=== PATIENT | female | born 1985 | race African-American/Black ===

== ENCOUNTER 2021-08-16 14:35 | Outpatient (CLI) | payer MEDICAID | END 2021-08-16 14:36 | disposition critical access hospital (66) | LOC: EMS 14:35 | DX: T63.441A Toxic effect of venom of bees, accidental (unintentional), initial encounter (principal); R42 Dizziness and giddiness; R07.89 Other chest pain; Y99.0 Civilian activity done for income or pay | CPT/HCPCS: A0425; A0429; A0999 ==

== ENCOUNTER 2021-08-16 14:55 | Emergency (ER) | payer MEDICAID ==
[2021-08-16] MEDS ORDERED: DEXAMETHASONE 10 MG/ML VIAL IVP STA (15:08)
[2021-08-16 15:38] VITALS: BP 131/69
--- NOTE | 2021-08-16 15:49 | ED Physician Documentation ---
History of Present Illness - Stated complaint Stated Complaint: BEE STING - Chief complaint Chief Complaint: Allergic Rx - History obtained from History obtained from: Patient - History of Present Illness Timing: Today - Additonal information Additional information: 36-year-old female who has had anaphylaxis from bee sting previously was at work today when she was stung in the neck both on the side of the neck and the back of the neck. She had immediate swelling to the area, and then she developed some shortness of breath. She stopped her work, went directly to the convenient store, purchased purchased some Benadryl and took it. She felt that she could hold her own if she was breathing very shallow breaths. Her coworkers came to find her and took her to the urgent care clinic where she was administered epinephrine and the ambulance was summoned to take her to the hospital. Review of Systems Constitutional: denies: Fever Eyes: denies: Decreased vision Ears: denies: Ear pain Nose: denies: Congestion Throat: denies: Sore throat Cardiac: denies: Chest pain / pressure, Palpitations Respiratory: reports: Dyspnea. denies: Cough, Hemoptysis, Wheezing GI: denies: Abdominal Pain, Nausea, Vomiting : denies: Dysuria, Frequency PD PAST MEDICAL HISTORY - Past Surgical History Past Surgical History: No - Present Medications Home Medications: Ambulatory Orders Medication Instructions Recorded Confirmed LORazepam [Lorazepam] 0.5 mg PO BID PRN #14 tablet 08/15/19 EPINEPHrine [Epinephrine] 0.3 mg IJ ONCE PRN #2 syr 08/16/21 - Allergies Allergies/Adverse Reactions: Allergies Allergy/AdvReac Type Severity Reaction Status Date / Time hydrocodone Allergy Anaphylaxis Verified 08/16/21 15:05 - Social History Does the pt smoke?: No Smoking Status: Never smoker Does the pt drink ETOH?: No Does the pt have substance abuse?: No - Immunizations Immunizations are current?: No Immunizations: TDAP >10years/unknown - POLST Patient has POLST: No PD ED PE NORMAL - Vitals Vital signs reviewed: Yes (normal ) - General General: Alert and oriented X 3, No acute distress, Well developed/nourished - HEENT HEENT: Atraumatic, PERRL, EOMI - Neck Neck: Supple, no meningeal sign, No bony TTP, Other (There is swelling apprciated to the left lateral neck and the posterior neck. ) - Cardiac Cardiac: RRR, No murmur - Respiratory Respiratory: No respiratory distress, Clear bilaterally - Abdomen Abdomen: Normal bowel sounds, Soft, Non tender, Non distended, No organomegaly - Back Back: No CVA TTP, No spinal TTP - Derm Derm: Normal color, Warm and dry, No rash - Extremities Extremities: No deformity, No edema - Neuro Neuro: Alert and oriented X 3, sod stripper 2-12 intact, No motor deficit, No sensory deficit, Normal speech Eye Opening: Spontaneous Motor: Obeys Commands Verbal: Oriented GCS Score: 15 - Psych Psych: Normal mood, Normal affect Results - Vitals Vitals: Vital Signs - 24 hr 08/16/21 08/16/21 15:01 15:37 Temperature 36.8 C Heart Rate 65 55 L Respiratory 15 16 Rate Blood Pressure 128/66 131/69 H O2 Saturation 100 100 Oxygen O2 Source Room air PD MEDICAL DECISION MAKING - ED course Complexity details: considered differential, d/w patient ED course: 36-year-old female with a history of bee sting anaphylaxis has been stung. She has been treated prior to the emergency department. She has been administered both epinephrine and Benadryl. Here in the emergency department she is administered dexamethasone. I have asked patient to continue Benadryl 25 mg every 6 hours for the next 2 days and we have refilled an epinephrine pen for the patient. Departure - Departure Disposition: 01 Home, Self Care Clinical Impression: Bee sting-induced anaphylaxis Qualifiers: Encounter type: initial encounter Injury intent: accidental or unintentional Qualified Code(s): T63.441A - Toxic effect of venom of bees, accidental (unintentional), initial encounter Condition: Stable Instructions: ED Bite Sting Insect Gen Allergic React Follow-Up: Mariano Noonan MD [Provider Admit Priv/Credential] - Prescriptions: EPINEPHrine [Epinephrine] 0.3 mg IJ ONCE PRN #2 syr PRN Reason: bee sting Comments: Amaury, today it looks like he was stung by a bee and had anaphylaxis associated with that and we have given you some dexamethasone here in the emergency department which should help over the next 2 days. In addition my recommendation is to take Benadryl 25 mg every 6 hours for the next 2 days. I have e-scribed an EpiPen for you and this will be available at the [facility].
== END 2021-08-16 16:13 | disposition home or self-care (01) ==
LOC: EDUNIT# → ED 14:55
DX: T63.441A Toxic effect of venom of bees, accidental (unintentional), initial encounter (principal)
CPT/HCPCS: 96374; 99282

== ENCOUNTER 2021-09-22 09:15 | Outpatient (CLI) | payer OTHER, MEDICAID ==
--- NOTE | 2021-09-22 14:17 | XRAY Report ---
PROCEDURE: Knee 3 View LT INDICATIONS: LEFT KNEE PAIN TECHNIQUE: 3 views of the left knee(s) were acquired. COMPARISON: None. FINDINGS: Bones: No fractures or dislocations. No suspicious bony lesions. Mild osteoarthritic degenerative c hanges noted in all 3 compartments of the left knee. Soft tissues: No joint effusion. No suspicious soft tissue calcifications. IMPRESSION: Mild left knee tricompartmental osteoarthritis. Reviewed by: Rose Perales MD, PhD on 09/22/2021 2:16 PM PDT Approved by: Rose Perales MD, PhD on 09/22/2021 2:16 PM PDT Station ID: [id number]
== END 2021-09-22 23:59 | disposition home or self-care (01) ==
LOC: DI.WOS 09:15
PROVIDERS: ATTEND Physician Assistant
DX: M17.12 Unilateral primary osteoarthritis, left knee (principal)

== ENCOUNTER 2022-10-31 21:28 | Emergency (ER) | payer MEDICAID ==
--- OUTSIDE RECORDS SUMMARY | 2022-10-31 21:48 | EXTERNAL MEDICAL SUMMARY RPT | Continuity of Care Document ---
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 (A50-A64) [facility] 2022-10-25 14:55 Encounter for screening for oth er viral diseases [facility] Results/Labs test date author facility value unit interpretation Result panel 1 (unknown) (no date) (unknown) (unknown) (no value) (units unknown) (unknown) (unknown) (no date) (unknown) (unknown) 10/25/22 (units unknown) (unknown) (unknown) (no date) (unknown) (unknown) 14:49 (units unknown) (unknown) (unknown) (no date) (unknown) (unknown) [id number] (units unknown) (unknown) (unknown) (no date) (unknown) (unknown) Accompanied by: Self / Same As Patient (units unknown) (unknown) (unknown) (no date) (unknown) (unknown) Age/Sex: 37 / F Date of Service: (units unknown) (unknown) (unknown) (no date) (unknown) (unknown) Allergies (units unknown) (unknown) (unknown) (no date) (unknown) (unknown) [place] [address] (units unknown) (unknown) (unknown) (no date) (unknown) (unknown) Anaphylaxis (units unknown) (unknown) (unknown) (no date) (unknown) (unknown) Assessment + Plan (units unknown) (unknown) (unknown) (no date) (unknown) (unknown) Attending Dr: Stephanie Nance D.O. (units unknown) (unknown) (unknown) (no date) (unknown) (unknown) BMI 51.1 (units unknown) (unknown) (unknown) (no date) (unknown) (unknown) BP 122/70 (units unknown) (unknown) (unknown) (no date) (unknown) (unknown) Blood Pressure Locat ion Lt brachial (units unknown) (unknown) (unknown) (no date) (unknown) (unknown) : 1985 Acct:[id number] (units unknown) (unknown) (unknown) (no date) (unknown) (unknown) Date of Last Menstru al Period: 10/06/22 (units unknown) (unknown) (unknown) (no date) (unknown) (unknown) Dept at . (units unknown) (unknown) (unknown) (no date) (unknown) (unknown) Documented By: Stephanie Nance D.O. 10/25/22 1444 (units unknown) (unknown) (unknown) (no date) (unknown) (unknown) Draft (units unknown) (unknown) (unknown) (no date) (unknown) (unknown) Family Practice Offi ce Visit (units unknown) (unknown) (unknown) (no date) (unknown) (unknown) [facility] (units unknown) (unknown) (unknown) (no date) (unknown) (unknown) HIV 1 + 2 Ab/Ag 4th Gen Combo Today A64 - Unspecified sexually transmitted (units unknown) (unknown) (unknown) (no date) (unknown) (unknown) Health Management reviewed with patient: Yes (units unknown) (unknown) (unknown) (no date) (unknown) (unknown) Health Management (units unknown) (unknown) (unknown) (no date) (unknown) (unknown) Height 5 ft 5 in (units unknown) (unknown) (unknown) (no date) (unknown) (unknown) Hep C Virus Ab w/Ref mera Quant Today A64 - Unspecified sexually transmitted (units unknown) (unknown) (unknown) (no date) (unknown) (unknown) Intake Note: (units unknown) (unknown) (unknown) (no date) (unknown) (unknown) Intake performed by: Francisca Patel (units unknown) (unknown) (unknown) (no date) (unknown) (unknown) Intake (units unknown) (unknown) (unknown) (no date) (unknown) (unknown) Intake- Clincial Staff (units unknown) (unknown) (unknown) (no date) (unknown) (unknown) Is last menstrual period known: Yes (units unknown) (unknown) (unknown) (no date) (unknown) (unknown) Last Menstural Cycle + Details (units unknown) (unknown) (unknown) (no date) (unknown) (unknown) Loc: [facility] (units unknown) (unknown) (unknown) (no date) (unknown) (unknown) MM screening mammo B I Today Z12.31 - Encounter for screening mammogram for (units unknown) (unknown) (unknown) (no date) (unknown) (unknown) Medications 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 to establish care and requesting mammogram due (units unknown) (unknown) (unknown) (no date) (unknown) (unknown) No Known Home Medications 10/25/22 [History Confirmed 10/25/22] (units unknown) (unknown) (unknown) (no date) (unknown) (unknown) Orders (units unknown) (unknown) (unknown) (no date) (unknown) (unknown) Orders: (units unknown) (unknown) (unknown) (no date) (unknown) (unknown) Oxygen Delivery Meth od room air (units unknown) (unknown) (unknown) (no date) (unknown) (unknown) PFSH (units unknown) (unknown) (unknown) (no date) (unknown) (unknown) Patient: Amie Teresa arthur MR#: [id number] (units unknown) (unknown) (unknown) (no date) (unknown) (unknown) Position Sitting (units unknown) (unknown) (unknown) (no date) (unknown) (unknown) Pulse 83 (units unknown) (unknown) (unknown) (no date) (unknown) (unknown) Pulse Oximetry (%) 97 (units unknown) (unknown) (unknown) (no date) (unknown) (unknown) Pulse Source Monitor (units unknown) (unknown) (unknown) (no date) (unknown) (unknown) Reason For Visit (units unknown) (unknown) (unknown) (no date) (unknown) (unknown) Signed By: (units unknown) (unknown) (unknown) (no date) (unknown) (unknown) Smokeless tobacco us er: other (nicotine vape starting 2018 ) (units unknown) (unknown) (unknown) (no date) (unknown) (unknown) Smoking Status: Curr ent every day smoker (nicotine vape ) (units unknown) (unknown) (unknown) (no date) (unknown) (unknown) Temp 97.1 F L (units unknown) (unknown) (unknown) (no date) (unknown) (unknown) Temp Source Temporal Artery Scan (units unknown) (unknown) (unknown) (no date) (unknown) (unknown) This note may have b een all or partially generated using voice recognition (units unknown) (unknown) (unknown) (no date) (unknown) (unknown) Tobacco + Substance Use (units unknown) (unknown) (unknown) (no date) (unknown) (unknown) Tobacco Status (units unknown) (unknown) (unknown) (no date) (unknown) (unknown) Tobacco: How many ye ars used: 9 (units unknown) (unknown) (unknown) (no date) (unknown) (unknown) 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 If th ere are any questions, please contact the Medical Records (units unknown) (unknown) (unknown) (no date) (unknown) (unknown) hydrocodone Allergy (Severe, Verified 10/25/22 14:48) (units unknown) (unknown) (unknown) (no date) (unknown) (unknown) malignant neoplasm o f breast (units unknown) (unknown) (unknown) (no date) (unknown) (unknown) may occur. Occasiona l wrong-word or 'sound-alike' substitutions may have (units unknown) (unknown) (unknown) (no date) (unknown) (unknown) occurred due to the inherent limitations of voice recognition software. Please (units unknown) (unknown) (unknown) (no date) (unknown) (unknown) read the note maria lly and recognize, using context, where these substitutions (units unknown) (unknown) (unknown) (no date) (unknown) (unknown) software. Although every effort is made to edit content, medical billing representative errors (units unknown) (unknown) (unknown) (no date) (unknown) (unknown) substance use type: marijuana (3 grams per day ) (units unknown) (unknown) (unknown) (no date) (unknown) (unknown) to breast cancer screening (units unknown) (unknown) Result panel 2 (unknown) (no date) (unknown) (unknown) (no value) (units unknown) (unknown) (unknown) (no date) (unknown) (unknown) +++FHx DM, HLD (units unknown) (unknown) (unknown) (no date) (unknown) (unknown) 10/25/22 (units unknown) (unknown) (unknown) (no date) (unknown) (unknown) 14:49 (units unknown) (unknown) (unknown) (no date) (unknown) (unknown) 17-OH Progesterone Today E28.2 - Polycystic ovarian syndrome, E34.9 - Endocrine (units unknown) (unknown) (unknown) (no date) (unknown) (unknown) [id number] (units unknown) (unknown) (unknown) (no date) (unknown) (unknown) Accompanied by: Self / Same As Patient (units unknown) (unknown) (unknown) (no date) (unknown) (unknown) Add'l Complaint: (units unknown) (unknown) (unknown) (no date) (unknown) (unknown) Age/Sex: 37 / F Date of Service: (units unknown) (unknown) (unknown) (no date) (unknown) (unknown) Allergies (units unknown) (unknown) (unknown) (no date) (unknown) (unknown) [place] [address] (units unknown) (unknown) (unknown) (no date) (unknown) (unknown) Anaphylaxis (units unknown) (unknown) (unknown) (no date) (unknown) (unknown) Assessment + Plan (units unknown) (unknown) (unknown) (no date) (unknown) (unknown) Attending Dr: Stephanie Nance D.O. (units unknown) (unknown) (unknown) (no date) (unknown) (unknown) BMI 51.1 (units unknown) (unknown) (unknown) (no date) (unknown) (unknown) BP 122/70 (units unknown) (unknown) (unknown) (no date) (unknown) (unknown) Blood Pressure Locat ion Lt brachial (units unknown) (unknown) (unknown) (no date) (unknown) (unknown) Chief Complaint (units unknown) (unknown) (unknown) (no date) (unknown) (unknown) Chief Complaint: establish (units unknown) (unknown) (unknown) (no date) (unknown) (unknown) Comprehensive Metabo lic Panel Today E28.2 - Polycystic ovarian syndrome, E34.9 (units unknown) (unknown) (unknown) (no date) (unknown) (unknown) : 1985 Acct:[id number] (units unknown) (unknown) (unknown) (no date) (unknown) (unknown) Date of Last Menstru al Period: 10/06/22 (units unknown) (unknown) (unknown) (no date) (unknown) (unknown) Dept at . (units unknown) (unknown) (unknown) (no date) (unknown) (unknown) Details: (units unknown) (unknown) (unknown) (no date) (unknown) (unknown) Dihydrotestosterone Today E28.2 - Polycystic ovarian syndrome, E34.9 - Endocrine (units unknown) (unknown) (unknown) (no date) (unknown) (unknown) Documented By: Stephanie Nance D.O. 10/25/22 1444 (units unknown) (unknown) (unknown) (no date) (unknown) (unknown) Draft (units unknown) (unknown) (unknown) (no date) (unknown) (unknown) Encounter for screen ing for lipoid disorders, Z13.228 - Encounter for screening (units unknown) (unknown) (unknown) (no date) (unknown) (unknown) Encounter for screen ing for other metabolic disorders (units unknown) (unknown) (unknown) (no date) (unknown) (unknown) Endocrine disorder, unspecified, E55.9 - Vitamin D deficiency, unspecified, (units unknown) (unknown) (unknown) (no date) (unknown) (unknown) FHx breast cancer, m om dx in her 30s. Sister recently dx benign nodule. (units unknown) (unknown) (unknown) (no date) (unknown) (unknown) Family Practice Offi ce Visit (units unknown) (unknown) (unknown) (no date) (unknown) (unknown) [facility] (units unknown) (unknown) (unknown) (no date) (unknown) (unknown) Great grandfather (Gma's dad) passed from pancreatic cancer (units unknown) (unknown) (unknown) (no date) (unknown) (unknown) HIV 1 + 2 Ab/Ag 4th Gen Combo Today A64 - Unspecified sexually transmitted (units unknown) (unknown) (unknown) (no date) (unknown) (unknown) HPI (units unknown) (unknown) (unknown) (no date) (unknown) (unknown) Health Management reviewed with patient: Yes (units unknown) (unknown) (unknown) (no date) (unknown) (unknown) Health Management (units unknown) (unknown) (unknown) (no date) (unknown) (unknown) Height 5 ft 5 in (units unknown) (unknown) (unknown) (no date) (unknown) (unknown) Hemoglobin A1C% w Es t Avg Glu Today E28.2 - Polycystic ovarian syndrome, E34.9 (units unknown) (unknown) (unknown) (no date) (unknown) (unknown) Hep C Virus Ab w/Ref mera Quant Today A64 - Unspecified sexually transmitted (units unknown) (unknown) (unknown) (no date) (unknown) (unknown) Intake Note: (units unknown) (unknown) (unknown) (no date) (unknown) (unknown) Intake performed by: Francisca Patel (units unknown) (unknown) (unknown) (no date) (unknown) (unknown) Intake (units unknown) (unknown) (unknown) (no date) (unknown) (unknown) Intake- Clincial Staff (units unknown) (unknown) (unknown) (no date) (unknown) (unknown) Is last menstrual period known: Yes (units unknown) (unknown) (unknown) (no date) (unknown) (unknown) Last Menstural Cycle + Details (units unknown) (unknown) (unknown) (no date) (unknown) (unknown) Lipid Panel Today E2 8.2 - Polycystic ovarian syndrome, E34.9 - Endocrine (units unknown) (unknown) (unknown) (no date) (unknown) (unknown) Loc: [facility] (units unknown) (unknown) (unknown) (no date) (unknown) (unknown) MM screening mammo B I Today Z12.31 - Encounter for screening mammogram for (units unknown) (unknown) (unknown) (no date) (unknown) (unknown) Medications 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 to establish care and requesting mammogram due (units unknown) (unknown) (unknown) (no date) (unknown) (unknown) Orders (units unknown) (unknown) (unknown) (no date) (unknown) (unknown) Orders: (units unknown) (unknown) (unknown) (no date) (unknown) (unknown) Oxygen Delivery Meth od room air (units unknown) (unknown) (unknown) (no date) (unknown) (unknown) PFSH (units unknown) (unknown) (unknown) (no date) (unknown) (unknown) Patient: Amie Teresa MR#: [id number] (units unknown) (unknown) (unknown) (no date) (unknown) (unknown) Position Sitting (units unknown) (unknown) (unknown) (no date) (unknown) (unknown) Prolactin Today E28. 2 - Polycystic ovarian syndrome, E34.9 - Endocrine disorder, (units unknown) (unknown) (unknown) (no date) (unknown) (unknown) Pulse 83 (units unknown) (unknown) (unknown) (no date) (unknown) (unknown) Pulse Oximetry (%) 97 (units unknown) (unknown) (unknown) (no date) (unknown) (unknown) Pulse Source Monitor (units unknown) (unknown) (unknown) (no date) (unknown) (unknown) R53.83 - Other fatig ue, R73.9 - Hyperglycemia, unspecified, Z13.1 - Encounter (units unknown) (unknown) (unknown) (no date) (unknown) (unknown) R73.9 - Hyperglycemi a, unspecified, Z11.59 - Encounter for screening for other (units unknown) (unknown) (unknown) (no date) (unknown) (unknown) R73.9 - Hyperglycemi a, unspecified, Z13.1 - Encounter for screening for diabetes (units unknown) (unknown) (unknown) (no date) (unknown) (unknown) Reason For Visit (units unknown) (unknown) (unknown) (no date) (unknown) (unknown) Signed By: (units unknown) (unknown) (unknown) (no date) (unknown) (unknown) Smokeless tobacco us er: other (nicotine vape starting 2017 ) (units unknown) (unknown) (unknown) (no date) (unknown) (unknown) Smoking Status: Curr ent every day smoker (nicotine vape ) (units unknown) (unknown) (unknown) (no date) (unknown) (unknown) TSH w/ Reflex to FT4 Today E28.2 - Polycystic ovarian syndrome, E34.9 (units unknown) (unknown) (unknown) (no date) (unknown) (unknown) Temp 97.1 F L (units unknown) (unknown) (unknown) (no date) (unknown) (unknown) Temp Source Temporal Artery Scan (units unknown) (unknown) (unknown) (no date) (unknown) (unknown) Testosterone Free an d Total Today E28.2 - Polycystic ovarian syndrome, E34.9 (units unknown) (unknown) (unknown) (no date) (unknown) (unknown) This note may have b een all or partially generated using voice recognition (units unknown) (unknown) (unknown) (no date) (unknown) (unknown) Tobacco + Substance Use (units unknown) (unknown) (unknown) (no date) (unknown) (unknown) Tobacco Status (units unknown) (unknown) (unknown) (no date) (unknown) (unknown) Tobacco: How many ye ars used: 9 (units unknown) (unknown) (unknown) (no date) (unknown) (unknown) 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 (units unknown) (unknown) (unknown) (no date) (unknown) (unknown) Vitals (units unknown) (unknown) (unknown) (no date) (unknown) (unknown) Vitamin D 25 Hydroxy (D3) Today E28.2 - Polycystic ovarian syndrome, E34.9 (units unknown) (unknown) (unknown) (no date) (unknown) (unknown) Weight 307 lb 8 oz (units unknown) (unknown) (unknown) (no date) (unknown) (unknown) Will schedule pap (units unknown) (unknown) (unknown) (no date) (unknown) (unknown) Z13.228 - Encounter for screening for other metabolic disorders (units unknown) (unknown) (unknown) (no date) (unknown) (unknown) alcohol intake: curr ent (1-2 drinks every 3 months ) (units unknown) (unknown) (unknown) (no date) (unknown) (unknown) biotin PO 10/25/22 [History Confirmed 10/25/22] (units unknown) (unknown) (unknown) (no date) (unknown) (unknown) cholecalciferol (vitamin D3) PO 10/25/22 [History Confirmed 10/25/22] (units unknown) (unknown) (unknown) (no date) (unknown) (unknown) diabetes mellitus, Z13.220 - Encounter for screening for lipoid disorders, (units unknown) (unknown) (unknown) (no date) (unknown) (unknown) disease, E28.2 - Polycystic ovarian syndrome, E34.9 - Endocrine disorder, (units unknown) (unknown) (unknown) (no date) (unknown) (unknown) disorder, unspecifie d, E55.9 - Vitamin D deficiency, unspecified, R53.83 - Other (units unknown) (unknown) (unknown) (no date) (unknown) (unknown) disorders (units unknown) (unknown) (unknown) (no date) (unknown) (unknown) does self checks aft er period monthly (units unknown) (unknown) (unknown) (no date) (unknown) (unknown) due for pap (units unknown) (unknown) (unknown) (no date) (unknown) (unknown) family history (units unknown) (unknown) (unknown) (no date) (unknown) (unknown) fatigue, R73.9 - Hyperglycemia, unspecified, Z13.1 - Encounter for screening for (units unknown) (unknown) (unknown) (no date) (unknown) (unknown) for other metabolic disorders (units unknown) (unknown) (unknown) (no date) (unknown) (unknown) for screening for diabetes mellitus, Z13.220 - Encounter for screening for (units unknown) (unknown) (unknown) (no date) (unknown) (unknown) has been healthy (units unknown) (unknown) (unknown) (no date) (unknown) (unknown) has never had a mammogram before (units unknown) (unknown) (unknown) (no date) (unknown) (unknown) have occurred. If th ere are any questions, please contact the Medical Records (units unknown) (unknown) (unknown) (no date) (unknown) (unknown) hydrocodone Allergy (Severe, Verified 10/25/22 14:48) (units unknown) (unknown) (unknown) (no date) (unknown) (unknown) knee surgery (arthroscopy?) after an injury age 13, left leg. (units unknown) (unknown) (unknown) (no date) (unknown) (unknown) lipoid disorders, Z13.228 - Encounter for screening for other metabolic (units unknown) (unknown) (unknown) (no date) (unknown) (unknown) malignant neoplasm o f breast (units unknown) (unknown) (unknown) (no date) (unknown) (unknown) may occur. Occasiona l wrong-word or 'sound-alike' substitutions may have (units unknown) (unknown) (unknown) (no date) (unknown) (unknown) mellitus, Z13.220 - Encounter for screening for lipoid disorders, Z13.228 (units unknown) (unknown) (unknown) (no date) (unknown) (unknown) no known hx colon cancer (units unknown) (unknown) (unknown) (no date) (unknown) (unknown) occurred due to the inherent limitations of voice recognition software. Please (units unknown) (unknown) (unknown) (no date) (unknown) (unknown) one abnormal, was to ld might have reactivity (units unknown) (unknown) (unknown) (no date) (unknown) (unknown) read the note carefu lly and recognize, using context, where these substitutions (units unknown) (unknown) (unknown) (no date) (unknown) (unknown) software. Although every effort is made to edit content, medical billing representative errors (units unknown) (unknown) (unknown) (no date) (unknown) (unknown) substance use type: marijuana (3 grams per day ) (units unknown) (unknown) (unknown) (no date) (unknown) (unknown) to breast cancer screening (units unknown) (unknown) (unknown) (no date) (unknown) (unknown) tonsils and adenoids out after several rounds of strep as a kid (units unknown) (unknown) (unknown) (no date) (unknown) (unknown) unspecified, E55.9 - Vitamin D deficiency, unspecified, R53.83 - Other fatigue, (units unknown) (unknown) (unknown) (no date) (unknown) (unknown) viral diseases, Z13. 1 - Encounter for screening for diabetes mellitus, Z13.220 (units unknown) (unknown) (unknown) (no date) (unknown) (unknown) vitamin A-vitamin C-vitamin E PO 10/25/22 [History Confirmed 10/25/22] (units unknown) (unknown) (unknown) (no date) (unknown) (unknown) vitamin E acetate PO 10/25/22 [History Confirmed 10/25/22] (units unknown) (unknown) Result panel 3 (unknown) (no date) (unknown) (unknown) (no value) (units unknown) (unknown) (unknown) (no date) (unknown) (unknown) +++FHx DM, HLD (units unknown) (unknown) (unknown) (no date) (unknown) (unknown) 10/25/22 (units unknown) (unknown) (unknown) (no date) (unknown) (unknown) 14:49 (units unknown) (unknown) (unknown) (no date) (unknown) (unknown) 17-OH Progesterone Today E28.2 - Polycystic ovarian syndrome, E34.9 - Endocrine (units unknown) (unknown) (unknown) (no date) (unknown) (unknown) [id number] (units unknown) (unknown) (unknown) (no date) (unknown) (unknown) Accompanied by: Self / Same As Patient (units unknown) (unknown) (unknown) (no date) (unknown) (unknown) Add'l Complaint: (units unknown) (unknown) (unknown) (no date) (unknown) (unknown) Age/Sex: 37 / F Date of Service: (units unknown) (unknown) (unknown) (no date) (unknown) (unknown) Allergies (units unknown) (unknown) (unknown) (no date) (unknown) (unknown) [place] [address] (units unknown) (unknown) (unknown) (no date) (unknown) (unknown) Anaphylaxis (units unknown) (unknown) (unknown) (no date) (unknown) (unknown) Assessment + Plan (units unknown) (unknown) (unknown) (no date) (unknown) (unknown) Attending Dr: Stephanie Nance D.O. (units unknown) (unknown) (unknown) (no date) (unknown) (unknown) BMI 51.1 (units unknown) (unknown) (unknown) (no date) (unknown) (unknown) BP 122/70 (units unknown) (unknown) (unknown) (no date) (unknown) (unknown) Blood Pressure Locat ion Lt brachial (units unknown) (unknown) (unknown) (no date) (unknown) (unknown) Chief Complaint (units unknown) (unknown) (unknown) (no date) (unknown) (unknown) Chief Complaint: establish (units unknown) (unknown) (unknown) (no date) (unknown) (unknown) Comprehensive Metabo lic Panel Today E28.2 - Polycystic ovarian syndrome, E34.9 (units unknown) (unknown) (unknown) (no date) (unknown) (unknown) : 1985 Acct:[id number] (units unknown) (unknown) (unknown) (no date) (unknown) (unknown) Date of Last Menstru al Period: 10/06/22 (units unknown) (unknown) (unknown) (no date) (unknown) (unknown) Dept at . (units unknown) (unknown) (unknown) (no date) (unknown) (unknown) Details: (units unknown) (unknown) (unknown) (no date) (unknown) (unknown) Dihydrotestosterone Today E28.2 - Polycystic ovarian syndrome, E34.9 - Endocrine (units unknown) (unknown) (unknown) (no date) (unknown) (unknown) Documented By: Stephanie Nance D.O. 10/25/22 1444 (units unknown) (unknown) (unknown) (no date) (unknown) (unknown) Draft (units unknown) (unknown) (unknown) (no date) (unknown) (unknown) Encounter for screen ing for lipoid disorders, Z13.228 - Encounter for screening (units unknown) (unknown) (unknown) (no date) (unknown) (unknown) Encounter for screen ing for other metabolic disorders (units unknown) (unknown) (unknown) (no date) (unknown) (unknown) Endocrine disorder, unspecified, E55.9 - Vitamin D deficiency, unspecified, (units unknown) (unknown) (unknown) (no date) (unknown) (unknown) FHx breast cancer, m om dx in her 30s. Sister recently dx benign nodule. (units unknown) (unknown) (unknown) (no date) (unknown) (unknown) Family Practice Offi ce Visit (units unknown) (unknown) (unknown) (no date) (unknown) (unknown) [facility] (units unknown) (unknown) (unknown) (no date) (unknown) (unknown) Great grandfather (Gma's dad) passed from pancreatic cancer (units unknown) (unknown) (unknown) (no date) (unknown) (unknown) HIV 1 + 2 Ab/Ag 4th Gen Combo Today A64 - Unspecified sexually transmitted (units unknown) (unknown) (unknown) (no date) (unknown) (unknown) HPI (units unknown) (unknown) (unknown) (no date) (unknown) (unknown) Health Management reviewed with patient: Yes (units unknown) (unknown) (unknown) (no date) (unknown) (unknown) Health Management (units unknown) (unknown) (unknown) (no date) (unknown) (unknown) Height 5 ft 5 in (units unknown) (unknown) (unknown) (no date) (unknown) (unknown) Hemoglobin A1C% w Es t Avg Glu Today E28.2 - Polycystic ovarian syndrome, E34.9 (units unknown) (unknown) (unknown) (no date) (unknown) (unknown) Hep C Virus Ab w/Ref mera Quant Today A64 - Unspecified sexually transmitted (units unknown) (unknown) (unknown) (no date) (unknown) (unknown) Intake Note: (units unknown) (unknown) (unknown) (no date) (unknown) (unknown) Intake performed by: Francisca Patel (units unknown) (unknown) (unknown) (no date) (unknown) (unknown) Intake (units unknown) (unknown) (unknown) (no date) (unknown) (unknown) Intake- Clincial Staff (units unknown) (unknown) (unknown) (no date) (unknown) (unknown) Is last menstrual period known: Yes (units unknown) (unknown) (unknown) (no date) (unknown) (unknown) Last Menstural Cycle + Details (units unknown) (unknown) (unknown) (no date) (unknown) (unknown) Lipid Panel Today E2 8.2 - Polycystic ovarian syndrome, E34.9 - Endocrine (units unknown) (unknown) (unknown) (no date) (unknown) (unknown) Loc: [facility] (units unknown) (unknown) (unknown) (no date) (unknown) (unknown) MM screening mammo B I Today Z12.31 - Encounter for screening mammogram for (units unknown) (unknown) (unknown) (no date) (unknown) (unknown) Medications 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 to establish care and requesting mammogram due (units unknown) (unknown) (unknown) (no date) (unknown) (unknown) Orders (units unknown) (unknown) (unknown) (no date) (unknown) (unknown) Orders: (units unknown) (unknown) (unknown) (no date) (unknown) (unknown) Oxygen Delivery Meth od room air (units unknown) (unknown) (unknown) (no date) (unknown) (unknown) PFSH (units unknown) (unknown) (unknown) (no date) (unknown) (unknown) Patient: Amie Teresa MR#: [id number] (units unknown) (unknown) (unknown) (no date) (unknown) (unknown) Position Sitting (units unknown) (unknown) (unknown) (no date) (unknown) (unknown) Prolactin Today E28. 2 - Polycystic ovarian syndrome, E34.9 - Endocrine disorder, (units unknown) (unknown) (unknown) (no date) (unknown) (unknown) Pulse 83 (units unknown) (unknown) (unknown) (no date) (unknown) (unknown) Pulse Oximetry (%) 97 (units unknown) (unknown) (unknown) (no date) (unknown) (unknown) Pulse Source Monitor (units unknown) (unknown) (unknown) (no date) (unknown) (unknown) R53.83 - Other fatig ue, R73.9 - Hyperglycemia, unspecified, Z13.1 - Encounter (units unknown) (unknown) (unknown) (no date) (unknown) (unknown) R73.9 - Hyperglycemi a, unspecified, Z11.59 - Encounter for screening for other (units unknown) (unknown) (unknown) (no date) (unknown) (unknown) R73.9 - Hyperglycemi a, unspecified, Z13.1 - Encounter for screening for diabetes (units unknown) (unknown) (unknown) (no date) (unknown) (unknown) Reason For Visit (units unknown) (unknown) (unknown) (no date) (unknown) (unknown) Signed By: (units unknown) (unknown) (unknown) (no date) (unknown) (unknown) Smokeless tobacco er: other (nicotine vape starting 2017 ) (units unknown) (unknown) (unknown) (no date) (unknown) (unknown) Smoking Status: Curr ent every day smoker (nicotine vape ) (units unknown) (unknown) (unknown) (no date) (unknown) (unknown) TSH w/ Reflex to FT4 Today E28.2 - Polycystic ovarian syndrome, E34.9 (units unknown) (unknown) (unknown) (no date) (unknown) (unknown) Temp 97.1 F L (units unknown) (unknown) (unknown) (no date) (unknown) (unknown) Temp Source Temporal Artery Scan (units unknown) (unknown) (unknown) (no date) (unknown) (unknown) Testosterone Free an d Total Today E28.2 - Polycystic ovarian syndrome, E34.9 (units unknown) (unknown) (unknown) (no date) (unknown) (unknown) This note may have b een all or partially generated using voice recognition (units unknown) (unknown) (unknown) (no date) (unknown) (unknown) Tobacco + Substance Use (units unknown) (unknown) (unknown) (no date) (unknown) (unknown) Tobacco Status (units unknown) (unknown) (unknown) (no date) (unknown) (unknown) Tobacco: How many ye ars used: 9 (units unknown) (unknown) (unknown) (no date) (unknown) (unknown) 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 (units unknown) (unknown) (unknown) (no date) (unknown) (unknown) Vitals (units unknown) (unknown) (unknown) (no date) (unknown) (unknown) Vitamin D 25 Hydroxy (D3) Today E28.2 - Polycystic ovarian syndrome, E34.9 (units unknown) (unknown) (unknown) (no date) (unknown) (unknown) Weight 307 lb 8 oz (units unknown) (unknown) (unknown) (no date) (unknown) (unknown) Will schedule pap (units unknown) (unknown) (unknown) (no date) (unknown) (unknown) Z13.228 - Encounter for screening for other metabolic disorders (units unknown) (unknown) (unknown) (no date) (unknown) (unknown) alcohol intake: curr ent (1-2 drinks every 3 months ) (units unknown) (unknown) (unknown) (no date) (unknown) (unknown) biotin PO 10/25/22 [History Confirmed 10/25/22] (units unknown) (unknown) (unknown) (no date) (unknown) (unknown) cholecalciferol (vitamin D3) PO 10/25/22 [History Confirmed 10/25/22] (units unknown) (unknown) (unknown) (no date) (unknown) (unknown) diabetes mellitus, Z13.220 - Encounter for screening for lipoid disorders, (units unknown) (unknown) (unknown) (no date) (unknown) (unknown) disease, E28.2 - Polycystic ovarian syndrome, E34.9 - Endocrine disorder, (units unknown) (unknown) (unknown) (no date) (unknown) (unknown) disorder, unspecifie d, E55.9 - Vitamin D deficiency, unspecified, R53.83 - Other (units unknown) (unknown) (unknown) (no date) (unknown) (unknown) disorders (units unknown) (unknown) (unknown) (no date) (unknown) (unknown) does self checks aft er period monthly (units unknown) (unknown) (unknown) (no date) (unknown) (unknown) due for pap (units unknown) (unknown) (unknown) (no date) (unknown) (unknown) family history (units unknown) (unknown) (unknown) (no date) (unknown) (unknown) fatigue, R73.9 - Hyperglycemia, unspecified, Z13.1 - Encounter for screening for (units unknown) (unknown) (unknown) (no date) (unknown) (unknown) for other metabolic disorders (units unknown) (unknown) (unknown) (no date) (unknown) (unknown) for screening for diabetes mellitus, Z13.220 - Encounter for screening for (units unknown) (unknown) (unknown) (no date) (unknown) (unknown) has been healthy (units unknown) (unknown) (unknown) (no date) (unknown) (unknown) has never had a mammogram before (units unknown) (unknown) (unknown) (no date) (unknown) (unknown) have occurred. If th ere are any questions, please contact the Medical Records (units unknown) (unknown) (unknown) (no date) (unknown) (unknown) hydrocodone Allergy (Severe, Verified 10/25/22 14:48) (units unknown) (unknown) (unknown) (no date) (unknown) (unknown) knee surgery (arthroscopy?) after an injury age 13, left leg. (units unknown) (unknown) (unknown) (no date) (unknown) (unknown) lipoid disorders, Z13.228 - Encounter for screening for other metabolic (units unknown) (unknown) (unknown) (no date) (unknown) (unknown) malignant neoplasm o f breast (units unknown) (unknown) (unknown) (no date) (unknown) (unknown) may occur. Occasiona l wrong-word or 'sound-alike' substitutions may have (units unknown) (unknown) (unknown) (no date) (unknown) (unknown) mellitus, Z13.220 - Encounter for screening for lipoid disorders, Z13.228 (units unknown) (unknown) (unknown) (no date) (unknown) (unknown) no known hx colon cancer (units unknown) (unknown) (unknown) (no date) (unknown) (unknown) occurred due to the inherent limitations of voice recognition software. Please (units unknown) (unknown) (unknown) (no date) (unknown) (unknown) one abnormal, was to ld might have reactivity (units unknown) (unknown) (unknown) (no date) (unknown) (unknown) read the note carefu lly and recognize, using context, where these substitutions (units unknown) (unknown) (unknown) (no date) (unknown) (unknown) software. Although every effort is made to edit content, medical billing representative errors (units unknown) (unknown) (unknown) (no date) (unknown) (unknown) substance use type: marijuana (3 grams per day ) (units unknown) (unknown) (unknown) (no date) (unknown) (unknown) to breast cancer screening (units unknown) (unknown) (unknown) (no date) (unknown) (unknown) tonsils and adenoids out after several rounds of strep as a kid (units unknown) (unknown) (unknown) (no date) (unknown) (unknown) unspecified, E55.9 - Vitamin D deficiency, unspecified, R53.83 - Other fatigue, (units unknown) (unknown) (unknown) (no date) (unknown) (unknown) viral diseases, Z13. 1 - Encounter for screening for diabetes mellitus, Z13.220 (units unknown) (unknown) (unknown) (no date) (unknown) (unknown) vitamin A-vitamin C-vitamin E PO 10/25/22 [History Confirmed 10/25/22] (units unknown) (unknown) (unknown) (no date) (unknown) (unknown) vitamin E acetate PO 10/25/22 [History Confirmed 10/25/22] (units unknown) (unknown) Result panel 4 (unknown) (no date) (unknown) (unknown) (no value) (units unknown) (unknown) (unknown) (no date) (unknown) (unknown) (1) Family history o f breast cancer: (units unknown) (unknown) (unknown) (no date) (unknown) (unknown) (2) Family history o f diabetes mellitus: (units unknown) (unknown) (unknown) (no date) (unknown) (unknown) (3) Obesity, morbid, BMI 50 or higher: (units unknown) (unknown) (unknown) (no date) (unknown) (unknown) +++FHx DM, HLD (units unknown) (unknown) (unknown) (no date) (unknown) (unknown) 10/25/22 1700 (units unknown) (unknown) (unknown) (no date) (unknown) (unknown) 10/25/22 (units unknown) (unknown) (unknown) (no date) (unknown) (unknown) 14:49 (units unknown) (unknown) (unknown) (no date) (unknown) (unknown) 17-OH Progesterone Today E28.2 - Polycystic ovarian syndrome, E34.9 - Endocrine (units unknown) (unknown) (unknown) (no date) (unknown) (unknown) [id number] (units unknown) (unknown) (unknown) (no date) (unknown) (unknown) Accompanied by: Self / Same As Patient (units unknown) (unknown) (unknown) (no date) (unknown) (unknown) Add'l Complaint: (units unknown) (unknown) (unknown) (no date) (unknown) (unknown) Age/Sex: 37 / F Date of Service: (units unknown) (unknown) (unknown) (no date) (unknown) (unknown) Allergies (units unknown) (unknown) (unknown) (no date) (unknown) (unknown) [place] [address] (units unknown) (unknown) (unknown) (no date) (unknown) (unknown) Anaphylaxis (units unknown) (unknown) (unknown) (no date) (unknown) (unknown) Assessment + Plan (units unknown) (unknown) (unknown) (no date) (unknown) (unknown) Attending Dr: Stephanie Nance DValerieOValerie (units unknown) (unknown) (unknown) (no date) (unknown) (unknown) BMI 51.1 (units unknown) (unknown) (unknown) (no date) (unknown) (unknown) BP 122/70 (units unknown) (unknown) (unknown) (no date) (unknown) (unknown) Blood Pressure Locat ion Lt brachial (units unknown) (unknown) (unknown) (no date) (unknown) (unknown) Chief Complaint (units unknown) (unknown) (unknown) (no date) (unknown) (unknown) Chief Complaint: establish (units unknown) (unknown) (unknown) (no date) (unknown) (unknown) Comprehensive Metabo lic Panel Today E28.2 - Polycystic ovarian syndrome, E34.9 (units unknown) (unknown) (unknown) (no date) (unknown) (unknown) Confirmed 10/25/22] (units unknown) (unknown) (unknown) (no date) (unknown) (unknown) Continue to modify towards healthy lifestyle. Lipids and CMP today as well as (units unknown) (unknown) (unknown) (no date) (unknown) (unknown) : 1985 Acct:[id number] (units unknown) (unknown) (unknown) (no date) (unknown) (unknown) Date of Last Menstru al Period: 10/06/22 (units unknown) (unknown) (unknown) (no date) (unknown) (unknown) Dept at . (units unknown) (unknown) (unknown) (no date) (unknown) (unknown) Details: (units unknown) (unknown) (unknown) (no date) (unknown) (unknown) Dihydrotestosterone Today E28.2 - Polycystic ovarian syndrome, E34.9 - Endocrine (units unknown) (unknown) (unknown) (no date) (unknown) (unknown) Documented By: Stephanie Nance D.O. 10/25/22 1444 (units unknown) (unknown) (unknown) (no date) (unknown) (unknown) Encounter for screen ing for lipoid disorders, Z13.228 - Encounter for screening (units unknown) (unknown) (unknown) (no date) (unknown) (unknown) Encounter for screen ing for other metabolic disorders (units unknown) (unknown) (unknown) (no date) (unknown) (unknown) Endocrine disorder, unspecified, E55.9 - Vitamin D deficiency, unspecified, (units unknown) (unknown) (unknown) (no date) (unknown) (unknown) Exam Narrative (units unknown) (unknown) (unknown) (no date) (unknown) (unknown) Exam Narrative: (units unknown) (unknown) (unknown) (no date) (unknown) (unknown) Exam (units unknown) (unknown) (unknown) (no date) (unknown) (unknown) FHx breast cancer, m om dx in her 30s. Sister recently dx benign nodule. (units unknown) (unknown) (unknown) (no date) (unknown) (unknown) Family Practice Offi ce Visit (units unknown) (unknown) (unknown) (no date) (unknown) (unknown) [facility] (units unknown) (unknown) (unknown) (no date) (unknown) (unknown) General: pleasant, cooperative, obese, sitting comfortably in no acute distress, (units unknown) (unknown) (unknown) (no date) (unknown) (unknown) Great grandfather (Gma's dad) passed from pancreatic cancer (units unknown) (unknown) (unknown) (no date) (unknown) (unknown) HIV 1 + 2 Ab/Ag 4th Gen Combo Today A64 - Unspecified sexually transmitted (units unknown) (unknown) (unknown) (no date) (unknown) (unknown) HPI (units unknown) (unknown) (unknown) (no date) (unknown) (unknown) Health Management reviewed with patient: Yes (units unknown) (unknown) (unknown) (no date) (unknown) (unknown) Health Management (units unknown) (unknown) (unknown) (no date) (unknown) (unknown) Height 5 ft 5 in (units unknown) (unknown) (unknown) (no date) (unknown) (unknown) Hemoglobin A1C% w Es t Avg Glu Today E28.2 - Polycystic ovarian syndrome, E34.9 (units unknown) (unknown) (unknown) (no date) (unknown) (unknown) Hep C Virus Ab w/Ref mera Quant Today A64 - Unspecified sexually transmitted (units unknown) (unknown) (unknown) (no date) (unknown) (unknown) Intake Note: (units unknown) (unknown) (unknown) (no date) (unknown) (unknown) Intake performed by: Francisca Patel (units unknown) (unknown) (unknown) (no date) (unknown) (unknown) Intake (units unknown) (unknown) (unknown) (no date) (unknown) (unknown) Intake- Clincial Staff (units unknown) (unknown) (unknown) (no date) (unknown) (unknown) Is last menstrual period known: Yes (units unknown) (unknown) (unknown) (no date) (unknown) (unknown) Last Menstural Cycle + Details (units unknown) (unknown) (unknown) (no date) (unknown) (unknown) Lipid Panel Today E2 8.2 - Polycystic ovarian syndrome, E34.9 - Endocrine (units unknown) (unknown) (unknown) (no date) (unknown) (unknown) Loc: [facility] (units unknown) (unknown) (unknown) (no date) (unknown) (unknown) MM screening mammo B I Today Z12.31 - Encounter for screening mammogram for (units unknown) (unknown) (unknown) (no date) (unknown) (unknown) Medications (units unknown) (unknown) (unknown) (no date) (unknown) (unknown) Mother dx breast can cer in her 30s, sister recently scare but dx benign mass. (units unknown) (unknown) (unknown) (no date) (unknown) (unknown) Multiple family memb ers with diabetes, will check CMP and A1c. 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 to establish care and requesting mammogram due (units unknown) (unknown) (unknown) (no date) (unknown) (unknown) Neuro: alert and oriented to person and situation, moving all limbs normally, (units unknown) (unknown) (unknown) (no date) (unknown) (unknown) Orders (units unknown) (unknown) (unknown) (no date) (unknown) (unknown) Orders: (units unknown) (unknown) (unknown) (no date) (unknown) (unknown) Oxygen Delivery Meth od room air (units unknown) (unknown) (unknown) (no date) (unknown) (unknown) PFSH (units unknown) (unknown) (unknown) (no date) (unknown) (unknown) Patient: Amie Teresa MR#: [id number] (units unknown) (unknown) (unknown) (no date) (unknown) (unknown) Plan (units unknown) (unknown) (unknown) (no date) (unknown) (unknown) Position Sitting (units unknown) (unknown) (unknown) (no date) (unknown) (unknown) Prolactin Today E28. 2 - Polycystic ovarian syndrome, E34.9 - Endocrine disorder, (units unknown) (unknown) (unknown) (no date) (unknown) (unknown) Psych: well kempt, speech and movement normal, normal affect (units unknown) (unknown) (unknown) (no date) (unknown) (unknown) Pulse 83 (units unknown) (unknown) (unknown) (no date) (unknown) (unknown) Pulse Oximetry (%) 97 (units unknown) (unknown) (unknown) (no date) (unknown) (unknown) Pulse Source Monitor (units unknown) (unknown) (unknown) (no date) (unknown) (unknown) R53.83 - Other fatig ue, R73.9 - Hyperglycemia, unspecified, Z13.1 - Encounter (units unknown) (unknown) (unknown) (no date) (unknown) (unknown) R73.9 - Hyperglycemi a, unspecified, Z11.59 - Encounter for screening for other (units unknown) (unknown) (unknown) (no date) (unknown) (unknown) R73.9 - Hyperglycemi a, unspecified, Z13.1 - Encounter for screening for diabetes (units unknown) (unknown) (unknown) (no date) (unknown) (unknown) Reason For Visit (units unknown) (unknown) (unknown) (no date) (unknown) (unknown) Resp: normal effort, able to speak in complete sentences (units unknown) (unknown) (unknown) (no date) (unknown) (unknown) Saccharomyces boular dii [Daily Probiotic (S. boulardii)] PO 10/25/22 [History (units unknown) (unknown) (unknown) (no date) (unknown) (unknown) Signed By: <Electronically signed by Stephanie Nance D.O.> (units unknown) (unknown) (unknown) (no date) (unknown) (unknown) Signed (units unknown) (unknown) (unknown) (no date) (unknown) (unknown) Smokeless tobacco er: other (nicotine vape starting 2017 ) (units unknown) (unknown) (unknown) (no date) (unknown) (unknown) Smoking Status: Curr ent every day smoker (nicotine vape ) (units unknown) (unknown) (unknown) (no date) (unknown) (unknown) Status: Acute (units unknown) (unknown) (unknown) (no date) (unknown) (unknown) TSH w/ Reflex to FT4 Today E28.2 - Polycystic ovarian syndrome, E34.9 (units unknown) (unknown) (unknown) (no date) (unknown) (unknown) TSH. (units unknown) (unknown) (unknown) (no date) (unknown) (unknown) Temp 97.1 F L (units unknown) (unknown) (unknown) (no date) (unknown) (unknown) Temp Source Temporal Artery Scan (units unknown) (unknown) (unknown) (no date) (unknown) (unknown) Testosterone Free an d Total Today E28.2 - Polycystic ovarian syndrome, E34.9 (units unknown) (unknown) (unknown) (no date) (unknown) (unknown) This note may have b een all or partially generated using voice recognition (units unknown) (unknown) (unknown) (no date) (unknown) (unknown) Tobacco + Substance Use (units unknown) (unknown) (unknown) (no date) (unknown) (unknown) Tobacco Status (units unknown) (unknown) (unknown) (no date) (unknown) (unknown) Tobacco: How many ye ars used: 9 (units unknown) (unknown) (unknown) (no date) (unknown) (unknown) 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 (units unknown) (unknown) (unknown) (no date) (unknown) (unknown) Will schedule pap (units unknown) (unknown) (unknown) (no date) (unknown) (unknown) Z13.228 - Encounter for screening for other metabolic disorders (units unknown) (unknown) (unknown) (no date) (unknown) (unknown) alcohol intake: curr ent (1-2 drinks every 3 months ) (units unknown) (unknown) (unknown) (no date) (unknown) (unknown) and able to transfer easily (units unknown) (unknown) (unknown) (no date) (unknown) (unknown) ashwagandha extract PO 10/25/22 [History Confirmed 10/25/22] (units unknown) (unknown) (unknown) (no date) (unknown) (unknown) biotin PO 10/25/22 [History Confirmed 10/25/22] (units unknown) (unknown) (unknown) (no date) (unknown) (unknown) cholecalciferol (vitamin D3) PO 10/25/22 [History Confirmed 10/25/22] (units unknown) (unknown) (unknown) (no date) (unknown) (unknown) diabetes mellitus, Z13.220 - Encounter for screening for lipoid disorders, (units unknown) (unknown) (unknown) (no date) (unknown) (unknown) disease, E28.2 - Polycystic ovarian syndrome, E34.9 - Endocrine disorder, (units unknown) (unknown) (unknown) (no date) (unknown) (unknown) disorder, unspecifie d, E55.9 - Vitamin D deficiency, unspecified, R53.83 - Other (units unknown) (unknown) (unknown) (no date) (unknown) (unknown) disorders (units unknown) (unknown) (unknown) (no date) (unknown) (unknown) does self checks aft er period monthly (units unknown) (unknown) (unknown) (no date) (unknown) (unknown) due for pap (units unknown) (unknown) (unknown) (no date) (unknown) (unknown) family history breas t cancer (units unknown) (unknown) (unknown) (no date) (unknown) (unknown) fatigue, R73.9 - Hyperglycemia, unspecified, Z13.1 - Encounter for screening for (units unknown) (unknown) (unknown) (no date) (unknown) (unknown) ferrous sulfate PO 10/25/22 [History Confirmed 10/25/22] (units unknown) (unknown) (unknown) (no date) (unknown) (unknown) for other metabolic disorders (units unknown) (unknown) (unknown) (no date) (unknown) (unknown) for screening for diabetes mellitus, Z13.220 - Encounter for screening for (units unknown) (unknown) (unknown) (no date) (unknown) (unknown) has been healthy (units unknown) (unknown) (unknown) (no date) (unknown) (unknown) has never had a mammogram before (units unknown) (unknown) (unknown) (no date) (unknown) (unknown) have occurred. If th ere are any questions, please contact the Medical Records (units unknown) (unknown) (unknown) (no date) (unknown) (unknown) hydrocodone Allergy (Severe, Verified 10/25/22 14:48) (units unknown) (unknown) (unknown) (no date) (unknown) (unknown) knee surgery (arthroscopy?) after an injury age 13, left leg. (units unknown) (unknown) (unknown) (no date) (unknown) (unknown) lipoid disorders, Z13.228 - Encounter for screening for other metabolic (units unknown) (unknown) (unknown) (no date) (unknown) (unknown) malignant neoplasm o f breast (units unknown) (unknown) (unknown) (no date) (unknown) (unknown) may occur. Occasiona l wrong-word or 'sound-alike' substitutions may have (units unknown) (unknown) (unknown) (no date) (unknown) (unknown) mellitus, Z13.220 - Encounter for screening for lipoid disorders, Z13.228 (units unknown) (unknown) (unknown) (no date) (unknown) (unknown) no known hx colon cancer (units unknown) (unknown) (unknown) (no date) (unknown) (unknown) normal gait (units unknown) (unknown) (unknown) (no date) (unknown) (unknown) occurred due to the inherent limitations of voice recognition software. Please (units unknown) (unknown) (unknown) (no date) (unknown) (unknown) one abnormal, was to ld might have reactivity (units unknown) (unknown) (unknown) (no date) (unknown) (unknown) read the note carefu lly and recognize, using context, where these substitutions (units unknown) (unknown) (unknown) (no date) (unknown) (unknown) software. Although every effort is made to edit content, medical billing representative errors (units unknown) (unknown) (unknown) (no date) (unknown) (unknown) substance use type: marijuana (3 grams per day ) (units unknown) (unknown) (unknown) (no date) (unknown) (unknown) to breast cancer screening (units unknown) (unknown) (unknown) (no date) (unknown) (unknown) tonsils and adenoids out after several rounds of strep as a kid (units unknown) (unknown) (unknown) (no date) (unknown) (unknown) unspecified, E55.9 - Vitamin D deficiency, unspecified, R53.83 - Other fatigue, (units unknown) (unknown) (unknown) (no date) (unknown) (unknown) viral diseases, Z13. 1 - Encounter for screening for diabetes mellitus, Z13.220 (units unknown) (unknown) (unknown) (no date) (unknown) (unknown) vitamin A-vitamin C-vitamin E PO 10/25/22 [History Confirmed 10/25/22] (units unknown) (unknown) Social History date description facility 2022-10-25 00:00 Smokes tobacco daily (finding) [facility] Vital Signs date measurement value units 2022-10-25 00:00 BMI 51.1 kg/m2 2022-10-25 00:00 BP_diastolic 70 mmHg 2022-10-25 00:00 BP_systolic 122 mmHg 2022-10-25 00:00 heart_rate 83 /min 2022-10-25 00:00 height_metric 165.1 cm 2022-10-25 00:00 height_standard 65 in 2022-10-25 00:00 o2_saturation 97 % 2022-10-25 00:00 temperature_metric 36.17 C 2022-10-25 00:00 temperature_standard 97.1 F 2022-10-25 00:00 weight_metric 139.47 kg 2022-10-25 00:00 weight_standard 307.48 lb
[2022-10-31] MEDS ORDERED: LIDOCAINE PATCH 5% TOP STA (23:13)
[2022-10-31] MEDS ORDERED: ACETAMINOPHEN 325 MG TABLET PO STA (23:13)
[2022-10-31 23:33] VITALS: BP 115/59
--- NOTE | 2022-10-31 23:47 | XRAY Report ---
PROCEDURE: Lumbar Spine 2 View INDICATIONS: fall/pain TECHNIQUE: 4 views of the lumbar spine were acquired. COMPARISON: None. FINDINGS: Bones: 5 [id number] vertebrae are present. There is preserved bony alignment. No vertebral leeanna dy compression fractures. There is mild to moderate disc space narrowing at L5-S1 with endplate scler osis. No suspicious bony lesions. Soft tissues: Overlying bowel gas pattern is normal. No suspicious soft tissue calcifications. IMPRESSION: 1. No evidence of fracture or subluxation. Reviewed by: Antolin Ferrera MD on 10/31/2022 11:46 PM PDT Approved by: Antolin Ferrera MD on 10/31/2022 11:46 PM PDT Station ID: [id number]
--- NOTE | 2022-11-01 00:24 | ED Physician Documentation ---
PD HPI Fall - Stated complaint Stated Complaint: GLF - Chief complaint Chief Complaint: Back Pain - History obtained from History obtained from: Patient - Additional information Additional information: Patient is a 37-year-old female presenting for evaluation of right hip and low back pain since a slip and fall at [employer] today. Patient was getting groceries when she excellently slipped on wet floor that she did not see. She did not hit her head or have LOC. She landed on her right side. She has had increased discomfort this afternoon. She denies prior injuries. She does not take a blood thinner. Review of Systems Constitutional: denies: Fever Nose: denies: Congestion Cardiac: denies: Chest pain / pressure Respiratory: denies: Dyspnea GI: denies: Abdominal Pain Musculoskeletal: reports: Back pain, Joint pain Neurologic: denies: Head injury PD PAST MEDICAL HISTORY - Past Surgical History Past Surgical History: No - Present Medications Home Medications: Ambulatory Orders Medication Instructions Recorded Confirmed LORazepam [Lorazepam] 0.5 mg PO BID PRN #14 tablet 08/15/19 EPINEPHrine [Epinephrine] 0.3 mg IJ ONCE PRN #2 syr 08/16/21 Lidocaine Patch 5% [Lidoderm Patch] 1 patch TOP DAILY PRN #10 patch 11/01/22 - Allergies Allergies/Adverse Reactions: Allergies Allergy/AdvReac Type Severity Reaction Status Date / Time hydrocodone Allergy Anaphylaxis Verified 10/31/22 21:40 - Social History Does the pt smoke?: No Smoking Status: Never smoker Does the pt drink ETOH?: No Does the pt have substance abuse?: No - Immunizations Immunizations are current?: No Immunizations: TDAP >10years/unknown - POLST Patient has POLST: No PD ED PE NORMAL - General General: Alert and oriented X 3, No acute distress, Well developed/nourished - HEENT HEENT: Atraumatic - Neck Neck: Supple, no meningeal sign - Cardiac Cardiac: RRR, No murmur, Strong equal pulses - Respiratory Respiratory: No respiratory distress, Clear bilaterally - Abdomen Abdomen: Soft, Non tender, Non distended - Back Back: Other (Mild midline low lumbar tenderness to palpation). No: No CVA TTP - Derm Derm: Warm and dry - Extremities Extremities: No deformity, No tenderness to palpate, Other (Mild pain on rotation of right hip) - Neuro Neuro: Alert and oriented X 3, No motor deficit, No sensory deficit, Normal speech Results - Vitals Vitals: Vital Signs - 24 hr 10/31/22 10/31/22 21:36 23:32 Temperature 36.9 C Heart Rate 60 61 Respiratory 17 17 Rate Blood Pressure 136/71 H 115/59 L O2 Saturation 96 98 Oxygen O2 Source Room air PD Medical Decision Making - ED course Complexity details: reviewed results, re-evaluated patient, d/w patient ED course: Patient is a 37-year-old presenting for evaluation after a slip and fall. She is ambulatory. No head injury. Normal neuro exam. X-rays were obtained of the Lumbar spine and the right hip. Did review these images and see no fracture dislocation or other injury. Discussed continued supportive care with lidocaine patches and anti-inflammatories. Patient is advised on the need for follow-up with PCP and is aware of concerning symptoms to return for. Departure - Departure Disposition: 01 Home, Self Care Clinical Impression: Low back strain, Right hip pain, Fall from slipping Condition: Stable Instructions: ED Sprain Strain Lumbar, ED Sprain Hip Prescriptions: Lidocaine Patch 5% [Lidoderm Patch] 1 patch TOP DAILY PRN #10 patch PRN Reason: pain Comments: The x-ray of your lower back is negative without signs of a fracture or dislocation. I also do not see any injuries on your hip x-ray but the official radiology report is still pending. I will notify you if there are any issues on the official read. [facility] [place] Please continue with anti-inflammatory such as acetaminophen or ibuprofen. I would also recommend rest and ice to any areas of pain. Please have close follow-up with your PCP. If you have any worsening symptoms please return to the emergency department. Discharge Date/Time: 11/01/22 00:35
--- NOTE | 2022-11-01 00:27 | XRAY Report ---
PROCEDURE: Hip w/Pelvis 2-3V RT INDICATIONS: fall/pain TECHNIQUE: AP pelvis with lateral view of the right hip. COMPARISON: None. FINDINGS: Bones: No fractures or dislocations. No suspicious bony lesions. Soft tissues: No suspicious soft tissue calcifications or masses. IMPRESSION: 1. No fracture or dislocation. Reviewed by: Antolin Ferrera MD on 11/01/2022 12:25 AM PDT Approved by: Antolin Ferrera MD on 11/01/2022 12:25 AM PDT Station ID: [id number]
== END 2022-11-01 00:35 | disposition home or self-care (01) ==
LOC: ED 21:28
DX: S39.012A Strain of muscle, fascia and tendon of lower back, initial encounter (principal); W01.0XXA Fall on same level from slipping, tripping and stumbling without subsequent striking against object, initial encounter; Y93.89 Activity, other specified; Y92.512 Supermarket, store or market as the place of occurrence of the external cause; M25.551 Pain in right hip
CPT/HCPCS: 72100; 73502; 99283; 99284; A9270